=== PATIENT | male | born 1980 | race Asian ===

== ENCOUNTER 2017-02-25 11:23 | Outpatient (CLI) | payer OTHER ==
[2017-02-25 12:02] LABS: ALT (SGPT) 39 U/L (8-55); AST (SGOT) 23 U/L (5-34); Albumin 4.4 g/dL (3.5-5.0); Alkaline Phosphatase 88 U/L (40-150); Anion Gap 14 mmol/L (10-20); BUN (Urea Nitrogen) 13 mg/dL (8.9-20.6); Bilirubin, Total 0.6 mg/dL (0.2-1.2); Calc. Creatinine Clearance 0 mL/min (70-130); Calcium 9.7 mg/dL (7.8-10.44); Carbon Dioxide 30 mmol/L (22-29); Cardiac Risk 6.5 (Less than 4.5); Chloride 101 mmol/L (98-107); Cholesterol 253 mg/dl (< 200 Desired); Estimated GFR-MDRD 84; Globulin 2.9 g/dL (2.4-3.5); Glucose 102 mg/dL (70-105); HDL Cholesterol 39 mg/dL (>60 Neg Risk); LDL Cholesterol, Calculated 155 mg/dL; Potassium 4.8 mmol/L (3.5-5.1); Protein, Total 7.3 g/dL (6.0-8.3); Sodium 140 mmol/L (136-145); Triglycerides 294 mg/dL (Less than 150)
[2017-02-25 12:17] LABS: Thyroid Stimulating Hormone 0.9091 uIU/mL (0.35-4.94)
[2017-02-25 17:12] LABS: Vitamin D, 25 Hydroxy 13.2 ng/ml (> 30.0)
== END 2017-02-25 11:24 | disposition home or self-care (01) ==
LOC: MADLAB 11:23
DX: Z00.00 Encounter for general adult medical examination without abnormal findings (principal)
CPT/HCPCS: 36415; 80053; 80061; 82306; 84443